=== PATIENT | male | born 1975 | race Caucasian/White ===

== ENCOUNTER 2022-01-10 14:48 | Emergency (ER) | payer OTHER ==
[2022-01-10 17:08] LABS: HEMOGLOBIN 15.4 gm/dl (14.0-17.5); RED BLOOD COUNT 5.3 M/UL (4.20-5.50); WHITE BLOOD COUNT 13.4 K/UL (4.5-11.0)
[2022-01-10 17:35] LABS: BUN/CREATININE RATIO 12 (0-10)
[2022-01-10] MEDS ORDERED: IBUPROFEN600 MG PO (19:21)
[2022-01-10] MEDS ORDERED: CEPHALEXIN500 M1 PO (19:21)
[2022-01-10] MEDS ORDERED: BACTROBAN OINT22 GM EXT (19:21)
== END 2022-01-11 | disposition home or self-care (01) ==
LOC: ER1 14:48
PROVIDERS: Emergency Medicine
DX: S62.631B Displaced fracture of distal phalanx of left index finger, initial encounter for open fracture (principal); S61.211A Laceration without foreign body of left index finger without damage to nail, initial encounter; S30.1XXA Contusion of abdominal wall, initial encounter; S00.83XA Contusion of other part of head, initial encounter; F17.200 Nicotine dependence, unspecified, uncomplicated; I51.9 Heart disease, unspecified; Z86.73 Personal history of transient ischemic attack (TIA), and cerebral infarction without residual deficits; V29.69XA Unspecified motorcycle rider injured in collision with other motor vehicles in traffic accident, initial encounter; Y92.410 Unspecified street and highway as the place of occurrence of the external cause
CPT/HCPCS: 12002; 70450; 70486; 71260; 72125; 72128; 72131; 73130; 80053; 81001; 85025; 94640; 94664; 94760; 96374; 96375; 99285; J0690; J2270; J2405; J7030; Q9967